=== PATIENT | female | born 1945 | race Caucasian/White ===

== ENCOUNTER 2025-01-09 12:35 | Day surgery (SDC) | payer MEDICARE, OTHER, SELFPAY ==
[2025-01-09] VITALS (18 sets, daily range): BP systolic 102–191; BP diastolic 55–95; BMI 27.4
[2025-01-09 13:09] LABS: Glucose - Point of Care 88 mg/dl (70-99)
--- NOTE | 2025-01-09 13:09 | HPS.HSE ---
Family Physician
-
Family Physician: Sarah Arnold
Chief Complaint
-
chest pain
History of Present Illness
Ms. Noelle Rodgers is a 79 yo woman with hx HLD, DM, GERD, anxiety/depression sent to from [place] for cath for unstable angina.
Patient states symptoms started evening and woke her up from sleep. She describes a chest pressure, + nausea that lasted about two hours. It went away and came back following morning when she went to the ER. Her Troponins have been
negative x 3 (per report, awaiting paperwork). She was initially chest pain free during our conversation then had return of pressure.
No recent fevers/chills. No headache. No current nausea/vomiting. No abdominal pain. No LE swelling.
Patient states prior to she was active in yard, climbs up stairs without chest pain.
Medical History
Past Medical History
Past Medical History: Reports Other ( HLD, DM, GERD, anxiety/depression)
Past Surgical History: Reports Gynocological
Social History
Tobacco: Non-smoker
Alcohol: None
Family History
Family History: Not pertinent
Allergies / Home Medications
Allergies reflects when Allergies were last updated in [employer].
Home Medications with original date entered in [employer]
Allergy/Medication List:
Allergies
Allergy/AdvReac Type Severity Reaction Status Date / Time
all anesthetics Allergy headaches Uncoded 01/09/25 12:41
Home Medications
ascorbic acid (vitamin C) 500 mg chewable tablet (Vitamin C) 500 mg PO DAILY 01/09/25
atorvastatin 10 mg tablet 10 mg PO QPM 01/09/25
calcium carbonate 500 mg PO DAILY 01/09/25
celecoxib 200 mg capsule 200 mg PO BID 01/09/25
cholecalciferol (vitamin D3) 50 mcg (2,000 unit) capsule (Vitamin D3) 50 mcg PO DAILY 01/09/25
coenzyme Q10 100 mg capsule (CoQ-10) 50 mg PO DAILY 01/09/25
cyanocobalamin (vitamin B-12) 2,500 mcg sublingual tablet (Vitamin B-12) 2,500 mcg sublingual DAILY 01/09/25
dicyclomine 20 mg tablet 20 mg PO DAILYPRN PRN stomach pain 01/09/25
docusate sodium 100 mg capsule (Colace) 100 mg PO DAILYPRN PRN constipation 01/09/25
meclizine 25 mg tablet 25 mg PO DAILY PRN vertigo 01/09/25
metformin 750 mg tablet 750 mg PO DAILY 01/09/25
omega 8-uzv-sgw-fish oil 1,000 mg (120 mg-180 mg) capsule (Fish Oil) 2 cap PO BID 01/09/25
omeprazole 20 mg capsule,delayed release 20 mg PO DAILY 01/09/25
omeprazole 20 mg capsule,delayed release 20 mg PO DAILY 01/09/25
riboflavin (vitamin B2) 100 mg tablet (Vitamin B-2) 400 mg PO DAILY 01/09/25
sertraline 100 mg tablet 100 mg PO DAILY 01/09/25
Review of Systems
-
History Source: Patient
A 12 point ROS was completed and negative except as noted: Yes
Physical Exam
Vital Signs
Vital Signs
Pulse Resp BP Pulse Ox
50 23 166/70 96
01/09/25 12:36 01/09/25 12:36 01/09/25 12:36 01/09/25 12:36
Physical Exam
General: No Apparent Distress
HEENT: PERRLA
Respiratory: Clear; No Wheezes
Cardiac: S1/S2, Regular Rhythm and Bradycardia
GI: Soft and Non Tender
Skin: Warm and Dry; No Rash
Neuro: AO x 3
Psych: Calm
Data Reviewed
-
Diagnostic Radiology: Report Reviewed by me
Lab Data: Labs Reviewed by me
Impression/Plan
-
Ms. Noelle Rodgers is a 79 yo woman with hx HLD, DM, GERD, hx bladder CA 6 years ago, anxiety/depression sent to from [place] for cath for unstable angina.
Unstable angina
-Troponin negative x 3; EKG with TWI
-return of pain during conversation, given nitro x 1 and addition 243mg asa for 324 total today
-patient was transferred here for [place], accepted for cardiac cath
-NPO until procedure
-asa 81mg PO QD
-increase BUSINESS OBJECTS CONSULTANT Liptior from 10mg to 40mg qhs
-follow up cath results, further Cardiology recommendations
DM
-hold BUSINESS OBJECTS CONSULTANT Metformin for 48 hours post contrast
-ISS Low
GERD
-BUSINESS OBJECTS CONSULTANT PPI
Anxiety/Depression
-BUSINESS OBJECTS CONSULTANT Zoloft
DVT PPx SCD
FULL CODE
[2025-01-09] MEDS: NITROSTAT (SUBLINGUAL) 0.4 MG SL ×2 (13:30→13:41)
[2025-01-09] MEDS: LOW STRENGTH ASPIRIN 243 MG PO (13:36)
--- NOTE | 2025-01-09 13:50 | PTCARENOTE ---
1315 Pt c/o chest pain rated 4/10 and described as pressure. Dr Dawson, hospitalist, at pt bedside, assessed pt, and ordered EKG and NTG. Pt pain free post 1st NTG. 2nd NTG given as ordered for chest pain 3/10. Pt is pain free post 2nd NTG. Will
continue to monitor.
[2025-01-09] MEDS: TYLENOL 1000 MG PO (13:53)
--- NOTE | 2025-01-09 15:03 | ITS.CL.CATH ---
[facility] - Catheterization
Cardiac Catheterization
Procedure Report:
LEFT HEART CATHETERIZATION
Date of Procedure: January 09, 2025
Referring: Dr. Cedrick Rodriguez
PROCEDURES:
1. Left heart catheterization, coronary angiogram.
2. Moderate sedation.
INDICATION: Concern for unstable angina
ACCESS: Right radial artery, 6Fr. sheath, under US guidance.
HEMODYNAMICS : (mmHg)
AO (s/d) : 143/64
LVEDP : 11
No significant gradient across the aortic valve to suggest aortic stenosis.
CORONARY FINDINGS
Dominance: Right
Left Main Trunk (LMT): Large caliber vessel that gives rise to the LAD and LCx branches and is free of angiographic disease.
Left Anterior Descending Artery (LAD): Large caliber vessel that gives off 3 major diagonal branches as it courses along the anterior inter-ventricular groove before wrapping around the cardiac apex. There is mild diffuse atherosclerotic plaque.
Left Circumflex Artery (LCx): Large caliber vessel that gives off 2 major obtuse marginal (OM) branches as it courses along the atrio-ventricular (AV) groove. Ostial left circumflex has 20 to 30% stenosis. Otherwise there is minimal luminal
irregularities.
Right Coronary Artery (RCA): Large caliber dominant vessel that gives rise to the posterior descending artery (RPDA) and postero-lateral ventricular (RPLV) branches distally. The RCA and its branches are free of angiographic disease.
SEDATION: 27 minutes of procedural sedation was utilized. IV Midazolam and IV Fentanyl were administered. An independent medical technologist hematology was present to assist with and help manage the patient's level of consciousness and physiologic status.
RADIATION SUMMARY: Fluoro Time (min): 5.8, Dose (mGy): 332.15, DAP (Gy.cm2) : 21.6
Closure Device: There were no immediate intra-procedural complications. The sheath was pulled in the cath lab nurse and a vascular-band applied to the right wrist for radial artery hemostasis using the patent hemostasis technique.
CONCLUSIONS
1. No obstructive coronary artery disease.
2. LVEDP of 11 mmHg.
RECOMMENDATIONS
1. Wean radial band per protocol. Monitor right hand perfusion and for bleeding from the radial site following removal of the vascular-band following trans-radial access.
2. Continue aggressive medical therapy and risk factor modification for secondary CAD prevention.
3. Hydrate with normal saline to mitigate the risk of contrast-induced acute kidney injury.
4. No clear cardiac etiology based on heart catheterization and ongoing rest chest discomfort. We will check an echocardiogram to be thorough to rule out any structural heart abnormalities.
4. Discussed with hospitalist team to consider possible GI workup for noncardiac chest pain.
Copy to: Dr. Cedrick Rodriguez
Richa Ramirez MD, FACC, [facility]
--- NOTE | 2025-01-09 16:30 | PTCARENOTE ---
Received pt from laboratory associate, VSS, monitor showing SB-SR, HR 40-50. Right radial band intact, no bleeding, no hematoma. Instructed on activity restrictions, pt verbalized understanding. Family at bedside, call colon in reach.
--- NOTE | 2025-01-09 16:37 | CM ---
Chart reviewed. Patient is lying in bed, family at bedside. Patient is independent of ADLS, lives with her in a [address], 0 [employer], 0 DME. Plan is for the patient to return home. CM to follow
[2025-01-09 17:45] LABS: Glucose - Point of Care 89 mg/dl (70-99)
[2025-01-09] MEDS: LIPITOR 40 MG PO (17:52)
[2025-01-09] MEDS: TYLENOL 650 MG PO (21:55)
[2025-01-09] MEDS: PEPCID 20 MG PO (21:55)
[2025-01-09 22:49] LABS: Glucose - Point of Care 78 mg/dl (70-99)
[2025-01-10 03:07] VITALS: BMI 27.3
[2025-01-10 03:08] VITALS: BP 136/68
[2025-01-10 03:32] LABS: Hematocrit 36.5 % (37.0-47.0); Hemoglobin 12.0 g/dL (12.0-16.0); Mean Corp Hgb Conc. 32.9 g/dL (33.0-37.0); Mean Corpuscular Volume 95.5 fL (81.0-99.0); Platelet Count 143 10^3/uL (130-400); Red Cell Dist. Width 12.1 % (11.5-14.5)
[2025-01-10 04:03] LABS: Blood Urea Nitrogen 22 mg/dl (7-17); Calcium 9.0 mg/dl (8.4-10.2); Carbon Dioxide 28 mmol/L (22-30); Chloride 108 mmol/L (98-107); Estimated Creatinine Clearance 58 ml/min; Glucose 96 mg/dl (70-99); HDL Cholesterol 49 mg/dl; LDL Cholesterol, Calculated 102 mg/dl; Potassium 4.1 mmol/L (3.5-5.1); Sodium 140 mmol/L (135-145); Very Low Density Lipoprotein 45 mg/dl (0-30); eGFR > 60.00
[2025-01-10 04:55] LABS: Hepatitis C Antibody Negative (Negative)
--- NOTE | 2025-01-10 05:19 | PTCARENOTE ---
Pt SB on monitor, VSS. Pt c/o rt upper arm pain/heaviness. Tylenol PRN given and effective. Rt wrist post cath CDI. Pt ambulates with x 1 assist and RW. Call colon within reach
--- NOTE | 2025-01-10 07:40 | W.PN.HOSP.TC ---
Today's Communication/Plan
-
expect discharge today post echo
Assessment / Plan
Assessment / Plan
Ms. Noelle Rodgers is a 79 yo woman with hx HLD, DM, GERD, hx bladder CA 6 years ago, anxiety/depression sent to from [place] for cath for concern for unstable angina. s/p cardiac cath without obstructive disease.
CONCLUSIONS
1. No obstructive coronary artery disease.
2. LVEDP of 11 mmHg.
RECOMMENDATIONS
1. Wean radial band per protocol. Monitor right hand perfusion and for bleeding from the radial site following removal of the vascular-band following trans-radial access.
2. Continue aggressive medical therapy and risk factor modification for secondary CAD prevention.
3. Hydrate with normal saline to mitigate the risk of contrast-induced acute kidney injury.
4. No clear cardiac etiology based on heart catheterization and ongoing rest chest discomfort. We will check an echocardiogram to be thorough to rule out any structural heart abnormalities.
4. Discussed with hospitalist team to consider possible GI workup for noncardiac chest pain.
Chest Pain
-Troponin negative x 3; EKG with TWI
-s/p cardiac cath without obstructive disease
-asa 81mg PO QD
-can return to home Lipitor dosing
-plan is for echo today
-other considerations are gastritis - I have started pepcid in evenings. Patient will follow up with PCP as outpatient, consider GI referral if symptoms persist and especially if related to eating.
DM
-hold THREADER Metformin for 48 hours post contrast
-ISS Low
GERD
-THREADER PPI
Anxiety/Depression
-THREADER Zoloft
DVT PPx SCD
FULL CODE
Anticipated Discharge: Within 24 hours
Subjective/Interval History
-
Date of Service: January 10, 2025
no chest discomfort over night
she had some right arm heaviness post procedure (where catheter entered - now resolved)
wrist without hematoma
Objective Data
-
Labs:
Laboratory Results
01/10/25
03:15
WBC 5.8
Hgb 12.0
Hct 36.5 L
Plt Count 143
Sodium 140
Potassium 4.1
Chloride 108 H
Carbon Dioxide 28
BUN 22 H
Creatinine 0.8
Glucose 96
Calcium 9.0
Vital Signs:
Vital Signs
Temp Pulse Resp BP Pulse Ox
97.6 F 45 16 136/68 91
01/10/25 03:08 01/10/25 03:08 01/10/25 03:08 01/10/25 03:08 01/10/25 03:08
I&O
01/09/25 01/10/25 01/11/25
06:59 06:59 06:59
Intake Total 350 / 350
Balance 350 / 350
Review of Systems
-
History Source: Patient
All other systems: Reviewed and negative
Physical Exam
-
General: No Apparent Distress
HEENT: PERRLA
Respiratory: Clear to Auscultation; Negative Wheezes
Cardiac: Regular Rhythm and S1/S2
GI: Soft and Nontender
Musculoskeletal: No Edema and Other (right wrist without hematoma; good flow manager strength, sensation in tact )
Skin: Warm and Dry; Negative Rash
Neuro: AO x 3
Psych: Calm
Data Reviewed
-
Diagnostic Radiology: Report Reviewed by me
Labs: Labs Reviewed by me
[2025-01-10 08:02] VITALS: BP 149/81
[2025-01-10] MEDS: ZOLOFT 100 MG PO (08:08)
[2025-01-10] MEDS: PROTONIX 40 MG PO (08:08)
[2025-01-10] MEDS: LOW STRENGTH ASPIRIN 81 MG PO (08:08)
[2025-01-10 08:56] LABS: Glucose - Point of Care 98 mg/dl (70-99)
[2025-01-10 09:35] LABS: Glycohemoglobin (HgbA1c) 5.7 % (4.0-5.6)
--- NOTE | 2025-01-10 10:21 | CM ---
Chart reviewed. Patient OOB ambulating the emerson. Patient is independent of ADLS, lives in a [address], 0 [facility], 0 DME. Plan is for the patient to return home.
--- NOTE | 2025-01-10 10:22 | CM ---
Pricing on Dofetilide through the patient's [employer], ID# [id number], is $157 and needs a prior authorization. Pricing through [facility] is $28. I gave the patient [facility] coupon.
--- NOTE | 2025-01-10 10:53 | W.PN.CARDCBS ---
Addendum entered and electronically signed by Trino Lester MD 01/10/25 16:02:
I saw and examined the patient.
The Evening Or Night Nurse Supervisor's note was reviewed and I agree with the note.
Comment: Briefly, 79-year-old woman with longstanding history of hypertension and GERD who initially presented to [facility] with chest discomfort and was subsequently transferred to [place] for left heart catheterization.
No obstructive coronary artery disease and normal filling pressures by left heart catheterization 01/09/2025
Echocardiogram earlier today with normal LV function and no significant valve disease
No clear cardiac cause of her symptoms. Based on history I suspect that there may be a GI etiology.
She should follow-up with her primary home attendant at [facility]
Stable for discharge from my perspective
Original Note:
Today's Communication / Plan
-
Met with the patient and her daughter today to discuss plan of discharge. We explained the results of the catheterization and upon results of the echo would be able to discharge her for non-cardiac related chest pain to be evaluated in the
outpatient setting. Her daughter mentioned that she has been following with Dr. Su Muhammad for bradycardia that was assessed initially at the ED at [facility] earlier this year. She also recently had a sleep study done and was diagnosed with
mild ANETA. They have concerns for bradycardia and hypertesion and pt verbalized she would like to transfer outpatient cardiac care to [facility]. After discussion, we decided to start the process for a Holter monitor and prescribed Amlodipine 2.5mg for BP
control due to past intolerance to other classes of antihypertensives. The patient is agreeable to this plan, but would like to wait for results of the echo before starting Amlodipine.
The patient was counseled on care for the arterial access site, including limiting weight resistance to less than 10 lbs, and refrain from excess activity involving the right wrist. We also discussed warning signs of a hematoma and advised her to
monitor for any swelling.
Update: Discussed results of echo (01/10/25) with the patient. We explained her findings revealed no acute abnormalities that would contribute to her chest pain. Her pain is non-cardiac, though she understands that she should continue to follow with
cardiology and her primary doctor for continued management.
Impression / Plan
-
PCP: Sarah Arnold
Area Coordinator: Dr. Su Muhammad
Impression:
Presented to the ED at [facility] with concern for angina. She was transferred to 01/09/25 for catheterization to evaluate possible CAD.
Tropinins negative x3 w/ EKG TWI per ED
hx HLD TG 225 01/10/25
hx DM HbA1c 5.7 01/10/25
hx GERD, hx bladder CA 6 years ago, anxiety/depression
hx of ANETA
- Sinus bradycardia
- H&H 12.0 and 36.5
- SCr 0.8, BUN 22
EKG 01/09/25: Sinus bradycardia with no other abnormalities
Cath 01/09/25: Mild diffuse atherosclerotic plaque of LAD and 20-30% stenosis of left circumflex. No signs of obstructive coronary disease.
Echo 01/10/25: Preserved EF, mild concentric LVH, Aortic sclerosis without stenosis
Plan:
- Patient is one day s/p cardiac catheterization that revealed no signs of obstructive coronary disease. She presented to [facility] ED for 2 episodes of chest pressure and nausea that woke her up during sleep and an additional episode that
morning. These symptoms had not been previously experienced even with exertion. She has a significant PMH of DM and HLD managed with Lipitor and Metformin as an outpatient. She was transferred to to evaluate for possible CAD causing unstable
angina 01/09/25. Her cardiac catheterization 01/09/25 reveals no signs of obstructive coronary disease and EKG showed sinus bradycardia with no other abnormalities. Echo 01/10/25 revealed a preserved ejection fraction, mild concentric LVH and aortic
sclerosis without stenosis.
- Arterial access site has mild ecchymosis with no bleeding, edema or signs of infection
- Patient has concerns of bradycardia and hypertension. She endorses a past history of a cough with Lisinopril and has concern of bradycardia, so we will start Amlodipine 2.5mg po QD for BP control
- Holter monitor x 7 days and pt wishes to make an appointment with our office for further cardiac care
- Pt may resume ASA 81mg
Progress Note - Area Coordinator
Subjective
Date of Service: January 10, 2025
Patient is one day s/p cardiac catheterization that revealed no signs of obstructive coronary disease. She presented to [facility] ED for 2 episodes of chest pressure and nausea that woke her up during sleep and an additional episode that
morning. These symptoms had not been previously experienced even with exertion. She has a significant PMH of DM and HLD managed with Lipitor and Metformin as an outpatient. She was transferred to to evaluate for possible CAD causing unstable
angina 01/09/25. Her cardiac catheterization 01/09/25 reveals no signs of obstructive coronary disease and EKG showed sinus bradycardia with no other abnormalities. Echo 01/10/25 revealed a preserved ejection fraction, mild concentric LVH and aortic
sclerosis without stenosis.. Her arterial access site has mild ecchymosis with no bleeding, edema or signs of infection. Patient has concerns of bradycardia and hypertension. She endorses a past history of a cough with Lisinopril and has concern of
bradycardia, so we will start Amlodipine 2.5mg po QD for BP control. To assess bradycardia, we will order a holter monitor to be placed for 7 days with follow up to our office. Patient wishes to transfer care from [place]. She may resume ASA 81mg
and patient is cleared for discharge from a cardiac perspective
Objective
Labs:
01/10/25 03:15
01/10/25 03:15
Labs
Hgb 12.0 g/dL (12.0-16.0) 01/10/25 03:15
Hct 36.5 % (37.0-47.0) L 01/10/25 03:15
Plt Count 143 10^3/uL (130-400) 01/10/25 03:15
Sodium 140 mmol/L (135-145) 01/10/25 03:15
Potassium 4.1 mmol/L (3.5-5.1) 01/10/25 03:15
BUN 22 mg/dl (7-17) H 01/10/25 03:15
Creatinine 0.8 mg/dL (0.6-1.0) 01/10/25 03:15
Glucose 96 mg/dl (70-99) 01/10/25 03:15
Vital Signs and I&O:
Vital Signs
Temp Pulse Resp BP Pulse Ox
98.6 F 58 20 149/81 99
01/10/25 08:01 01/10/25 09:15 01/10/25 08:01 01/10/25 08:02 01/10/25 08:01
Vital Signs
Temp Pulse Resp BP Pulse Ox
98.6 F 58 20 149/81 99
01/10/25 08:01 01/10/25 09:15 01/10/25 08:01 01/10/25 08:02 01/10/25 08:01
Intake & Output
01/08/25 01/09/25 01/10/25 01/11/25
06:59 06:59 06:59 06:59
Intake Total 350 / 350
Balance 350 / 350
Physical Exam
Physical Exam
General: NAD, well-nourished, well groomed
HEENT: PERRLA, MMM
Respiratory: CTA, no adventitious lung sounds
Cardiac: RRR, bradycardia ranging in the 50's while in room, +S1/S2, no murmurs, rubs or gallops
GI: Soft and Nontender
Musculoskeletal: +ecchymosis to arterial access on right wrist without hematoma, erythema or drainage
Skin: Warm and Dry; Negative Rash
Neuro: AO x 3
Psych: Calm
[2025-01-10 12:24] VITALS: BP 140/79
[2025-01-10 12:28] LABS: Glucose - Point of Care 113 mg/dl (70-99)
[2025-01-10] MEDS: NORVASC 2.5 MG PO (13:28)
--- NOTE | 2025-01-10 14:24 | W.DCSUMMARY ---
Discharge Summary
Discharge Data
Date of Admission: 01/09/25
Date of Discharge: 01/10/25
-
Pending Results: No
Hospital Course
Discharging Physician : Dr. Helena Dawson
Disposition : Home
Primary care physician : Dr. Sarah Arnold
Principal Discharge diagnosis : atypical chest pain, possible gastritis
Hospital Course :
Ms. Noelle Rodgers is a 79 yo woman with hx HLD, DM, GERD, anxiety/depression sent to from [place] for cath with concern for unstable angina. Patient was describing intermittent chest pressure at rest. She had negative Troponin x 3. She is s/p
cardiac cath on 01/09 without finding of obstructive disease. TTE obtained, WNL.
Etiology of chest discomfort may be related to gastritis. She was started on Pepcid to take in evenings. She was symptom free post cath and day of discharge and will follow up closely with her PCP.
She is started on aspirin 81mg daily for non-obstructive CAD seen on cardiac cath.
Patient is also started on amlodipine 2.5mg daily for treatment of essential HTN. She was noted to have bradycardia with HR mainly ranging 50's-low 60's. An outpatient nurse monitoring is arranged prior to discharge.
Time spent on discharge was 31 minutes.
Important imaging findings :
TTE 01/10/25
CONCLUSIONS
Normal left ventricular size and systolic function. No regional wall motion
abnormalities are seen. LV ejection fraction is 65-70% by Florez's method of
discs. Moderate concentric left ventricular hypertrophy. Diastolic function
indeterminate.
Normal right ventricular size. Normal right ventricular systolic function.
No significant valvular pathology
Procedure findings :
CARDIAC CATH 01/09/25
CONCLUSIONS
1. No obstructive coronary artery disease.
2. LVEDP of 11 mmHg.
Discharge Plan
-
Patient Disposition: Home (Routine Discharge)
Discharge Diagnosis/Procedures: atypical chest pain
Diet: Low Cholesterol
Activity: As tolerated
Stand Alone Forms: DC Instructions- Cath/EP Lab
Referrals:
Sarah Arnold, [Family Provider, Family Practice] - in less than 1 week
Additional Discharge Medication Instructions: Ok to resume Metformin on 01/12
Start Pepcid in evenings to see if helps with chest discomfort, which may be related to gastritis. Follow up with your Dr. Arnold who will discuss if need for further work-up based on your symptoms.
You are started on Amlodipine 2.5mg daily to treat high blood pressure.
You are also started on aspirin 81mg daily (for mild plaque seen in coronary arteries on cardiac cath)
Prescriptions:
New
famotidine 20 mg Tablet
20 mg PO HS Qty: 30 0RF
amlodipine 2.5 mg Tablet
2.5 mg PO DAILY Qty: 30 0RF
aspirin 81 mg Tablet,Chewable
81 mg PO DAILY Qty: 30 0RF
Continued
celecoxib 200 mg Capsule
200 mg PO BID
atorvastatin 10 mg Tablet
10 mg PO QPM
sertraline 100 mg Tablet
100 mg PO DAILY
calcium carbonate 500 mg calcium (1,250 mg) Tablet
500 mg PO DAILY
dicyclomine 20 mg Tablet
20 mg PO DAILYPRN PRN (Reason: stomach pain)
meclizine 25 mg Tablet
25 mg PO DAILY PRN (Reason: vertigo)
omeprazole 20 mg Capsule,Delayed Release(Dr/Ec)
20 mg PO DAILY
coenzyme Q10 [CoQ-10] 100 mg Capsule
50 mg PO DAILY
omega 2-lsi-nmm-fish oil [Fish Oil] 1,000 (120-180) mg Capsule
2 cap PO BID
cyanocobalamin (vitamin B-12) [Vitamin B-12] 2,500 mcg Tablet, Sublingual
2,500 mcg SUBLINGUAL DAILY
riboflavin (vitamin B2) [Vitamin B-2] 100 mg Tablet
400 mg PO DAILY
ascorbic acid (vitamin C) [Vitamin C] 500 mg Tablet,Chewable
500 mg PO DAILY
docusate sodium [Colace] 100 mg Capsule
100 mg PO DAILYPRN PRN (Reason: constipation)
cholecalciferol (vitamin D3) [Vitamin D3] 50 mcg (2,000 unit) Capsule
50 mcg PO DAILY
Held
metformin 750 mg Tablet
750 mg PO DAILY
Hold Instructions: Resume on 01/12/25.
Discharge Orders:
Discharge Patient (As Directed); Ordered 01/10/25
Ordered By: Helena Dawson
Care Plan Goals
Care Plan Goals:
Problem: Readiness for enhanced knowledge related to diagnosis and treatment plan
Goal: Understand your diagnosis and treatment plan needs, including medications if applicable.
Instructions: Know your diagnosis, underlying causes and treatment plan options, including medications if applicable. Consult with your health care team to learn about your diagnosis and treatment plan, including medications if applicable.
Discharge Date and Time
Print Language: TURKISH
--- NOTE | 2025-01-10 15:49 | W.PN.UPDATE ---
Update Note
Progress Note Update
Patient seen this morning in conjunction with CHANELLE castañeda, his documentation was reviewed by me and cosigned. Spent time in room with patient and daughter reviewing hospitalization at [facility] and then also hospitalization earlier in the
spring for chest pain. During the admission in the spring she apparently had heart rates in the 40s prompting outpatient sleep study that suggested mild ANETA and patient is scheduled for outpatient visit to review that result and for consideration
of therapy. Sounds like a Holter monitor was being considered, but patient has not yet completed that test. Then patient was seen at [facility] over the weekend with chest pain and upon transfer to our hospital she had chest pain and was
given NTG SL x 2 and hypertensive BP was then hypotensive. There were also heart rates recorded in the 40s at that time. Patient is intermittently dizzy. Patient is not taking any AV elliott blockers. Patient and daughter indicated that they
wished to transition care from Dr. Muhammad to our office and as part of that they wish to have monitor placed prior to discharge. There is also a concern about ongoing HTN and echo results. I obtained echo report and return to patient's room
to review echo report and place monitor, but found the patient had already been discharged. I called and talked with the patient and she reports that she was in fact discharged and that she and her daughter have decided to follow-up with their
usual lead designer and so they will follow-up with a monitor through his office.
== END 2025-01-10 15:57 | disposition home or self-care (01) ==
LOC: CATH 12:35
PROVIDERS: Student in an Organized Health Care Education/Training Program; ATTENDING PHYSICIAN Internal Medicine Interventional Cardiology; FAMILY PHYSICIAN Family Medicine
DX: I25.110 Atherosclerotic heart disease of native coronary artery with unstable angina pectoris (principal); I11.9 Hypertensive heart disease without heart failure; E78.5 Hyperlipidemia, unspecified; I70.0 Atherosclerosis of aorta; E11.9 Type 2 diabetes mellitus without complications; K21.9 Gastro-esophageal reflux disease without esophagitis; F41.9 Anxiety disorder, unspecified; F32.A Depression, unspecified; G47.33 Obstructive sleep apnea (adult) (pediatric); Z85.51 Personal history of malignant neoplasm of bladder; Z79.82 Long term (current) use of aspirin; Z79.84 Long term (current) use of oral hypoglycemic drugs
CPT/HCPCS: 99152; 99153; C1894; C1769; 80048; 80061; 82962; 83036; 84443; 85027; 86803; 93005; 93306; 93458; G0378; Q9967